=== PATIENT | female | born 1960 | race Caucasian/White ===

== ENCOUNTER → 2017-05-10 | Day surgery (SDC) | payer OTHER ==
--- NOTE | 2017-05-09 17:37 | History & Physical Pre-Op ---
General Information and HPI History of Present Illness: Joyce is a 56-year-old female with a long-standing and worsening complaint of a painful left heel. The patient has undergone an extended course of conservative care, including shoe gear and activity modification, rest, immobilization course of NSAIDs. None of this is yielded her any significantly. The patient presents today for preoperative surgical consultation. Allergies/Medications Allergies: Coded Allergies: Sulfa (Sulfonamide Antibiotics) (HIVES 05/06/17) adhesive (RASH 05/06/17) amoxicillin (HIVES 05/06/17) cefaclor (From CECLOR) (HIVES 05/06/17) latex (ITCHING 05/06/17) Uncoded Allergies: COLD WEATHER (ATMOSPHERIC HIVES 05/06/17) Home Med list Albuterol Sulfate (Proair Hfa) 90 MCG HFA.AER.AD 2 PUF INH PRN RESP. ( Reported) Calcium (Elemental-Fr Calcarb) (Tums Ultra) (Unknown Strength) TAB.CHEW ( Unknown Dose) PO QPM GI (Reported) Cetirizine HCl (Zyrtec) 10 MG CAPSULE 1 CAP PO QAM ALLERGIES (Reported) Ezetimibe/Simvastatin (Vytorin 10-20 MG Tablet) 10 MG-20 MG TABLET 1 TAB PO QPM CHOLESTEROL (Reported) Fluticasone Propionate/Salme (Advair Hfa 115-21 Mcg Inhaler) 115 MCG-21 MCG/ ACTUATION HFA.AER.AD 1 PUFF INH QAM RESP. (Reported) Ketotifen Fumarate (Alaway) 0.025 % (0.035 %) DROPS 1 GTT OU AD PRN ALLERGIES (Reported) Levothyroxine Sodium 50 MCG TABLET 1 TAB PO DAILY THYROID (Reported) Metformin HCl (Metformin HCl ER) 500 MG TAB.ER.24H 2 TAB PO QPM DM (Reported) Mometasone Furoate (Nasonex) 50 MCG SPRAY.PUMP 2 SPRAY NASB DAILY ALLERGIES ( Reported) Multivit-Min/FA/Lycopen/Lutein (Centrum Silver Tablet) 0.4 MG-300 MCG-250 MCG TABLET 1 TAB PO QAM SUPPLEMENT (Reported) Naproxen Sodium (Aleve) 220 MG CAPSULE 2 CAP PO BID PRN PAIN/INFLAMMATION ( Reported) Past History Medical History Neurological: NONE EENT: NONE Cardiovascular: NONE Respiratory: asthma Gastrointestinal: NONE Hepatic: NONE Renal: NONE Musculoskeletal: NONE Psychiatric: NONE Endocrine: NONE, diabetes Blood Disorders: NONE Cancer(s): NONE SENIOR DESIGNER/ART DIRECTOR/Reproductive: NONE Surgical History Pertinent Surgical History: hysterectomy Past Family/Social History Psychosocial History Services at Home None Review of Systems Review of Systems: Unremarkable except for that noted to present illness Exam & Diagnostic Data Physical Exam: Lungs clear bilaterally. Heart sounds rate and rhythm regular. Lower extremity physical exam demonstrates intact pedal pulses bilaterally. Pulses dorsalis pedis and posterior tibial arteries are palpable bilaterally. Patient without any sensory motor deficits. Deep tendon reflexes grossly intact. Patient noted assuming pain with palpation to the plantar medial aspect of the left heel. Negative Tinel sign noted with percussion the posterior tibial nerve. The range of motion noted to be diminished, especially in dorsiflexion. Assessment/Plan Assessment/Plan: Gastrocnemius equinus and plantar fasciitis left. A lengthy discussion reviewing both surgical and conservative options was held the patient at bedside and the patient elects to go forward with surgery despite the risks. As Ranked By This Provider Problem List: 1. Plantar fascial fibromatosis Attending MD Review Statement Attending Statement Attending MD Statement: examined this patient
[~2017-05-10] VITALS: Ht 154.9 cm; Wt 106.6 kg
[~2017-05-10] MED LIST: ADVAIR HFA 115-12 GM INH; ALAWAY10 ML OU; ALEVE220 M1 PO; CENTRUM SILVER1 EAC3 PO; IBUPROFEN800 MG PO; LEVOTHYROXINE50 MCG PO; LOTRIMIN AF12 GM TOP; METFORMIN HCL500 M4 PO; NASONEX17 GM NASB; PATADAY 2.5 ML2.5 ML OPH; PERCOCET 325 MG1 TA2 PO; POLYTRIM O200 GTT/BO OD; PREDNISONE50 MG PO; PROAIR HFA8.5 GM INH; TUMS ULTRA400 M1 PO; VITAMIN B12500 MCG PO; VYTORIN 10-201 EACH PO; ZYRTEC ALLERGY10 MG PO; ZYRTEC10 M6 PO
--- NOTE | 2017-05-10 11:31 | Operative Report ---
Operative/Inv Procedure Report Surgery Date: 05/10/17 Name of Procedure: 1 gastrocnemius recession left 2 plantar fasciotomy left 3 plantar fasciectomy left 4 intraoperative measures of ankle block anesthesia Pre-Operative Diagnosis: 1 gastrocnemius equinus left 2 plantar fasciitis left Post-Operative Diagnosis: The same Estimated Blood Loss: scant Surgeon/Sprinkling System Installer: Alin Chávez DPM Anesthesia: moderate sedation, block Operative/Procedure Note Note: After obtaining informed consent the patient was brought to the operating room and placed on the operating table in the supine position. The patient isn't securely fastened to the operating table utilizing safety belt. After administration of IV sedation, 10 mL of 0.5% Marcaine plain was infiltrated about the patient's left ankle. Well-padded calf tourniquet was placed about the patient's left upper calf. 600 mg of clindamycin were delivered intravenously times one dose. The left lower extremity was then scrubbed prepped and draped in usual aseptic manner. The left lower extremity was then elevated to exsanguinate the limb, which point the calf tourniquet was inflated 250 mmHg. Attention directed distal medial leg, where a linear incision was made 2 fingerbreadths distal and medial head of the gastrocnemius muscle. Dissection was then carried down to the medial margin of the gastroc fascia, where an interval was developed between the fascia and the peritenon. The sural nerve was identified and protected. A gastrocnemius recession was then performed. The deep tissues reprepped with 4-0 Vicryl and the skin is reprepped for nylon. Attention was then directed to the distal foot, where portals well- developed overlying the origin the medial slip of the plantar fascia. The tissue was then ablated with 40 W of radiofrequency energy at 5 mm intervals utilizing the [employer] micro-ablator. The dissection was then carried down to the medial margin of the plantar fascia which was released from its origin on the medial tubercle calcaneal tuberosity. The deep tissues reapproximated 4-0 Vicryl skin is 4-0 nylon. The incisions were then dressed with [place] dressings and Coban. The patient was noted tolerate both procedure and anesthesia well and the patient was transported from the operating room to recovery with vital signs stable best assess intact all digits left foot.
== END ==
LOC: STS 02:07
DX: M21.6X2 Other acquired deformities of left foot (principal); M72.2 Plantar fascial fibromatosis; E11.9 Type 2 diabetes mellitus without complications; Z79.84 Long term (current) use of oral hypoglycemic drugs; J45.909 Unspecified asthma, uncomplicated
CPT/HCPCS: J2001; J2250